=== PATIENT | male | born 1950 | race Asian ===

== ENCOUNTER 2016-12-04 15:28 | Inpatient (IN) | payer MEDICAID ==
[~2016-12-04] VITALS: Ht 170.2 cm; Wt 63.7 kg
[2016-12-04 17:20] LABS: BASOPHILS % (AUTO) 0.2 % (0.0-2.0); EOSINOPHILS % (AUTO) 0.7 % (1.0-6.0); HEMOGLOBIN 15.2 g/dL (13.5-17.5); LYMPHOCYTES # (AUTO) 1.4 K/uL (1.0-4.8); LYMPHOCYTES % (AUTO) 12.5 % (22.0-44.0); MEAN CORPUSCULAR HEMOGLOBIN 31.4 pg (26.0-34.0); MEAN CORPUSCULAR HGB CONC 33.1 G/dL (31.0-37.0); MEAN CORPUSCULAR VOLUME 95 fL (80-100); MONOCYTES # (AUTO) 0.7 K/uL (0.1-1.0); MONOCYTES % (AUTO) 6.6 % (2.0-9.0); NEUTROPHILS # (AUTO) 8.8 K/uL (1.8-7.7); PLATELET COUNT (AUTO) 280 K/uL (150-450); RED BLOOD CELL COUNT(AUTO) 4.84 MIL/uL (4.50-5.90); RED CELL DISTRIBUTION WIDTH 13.5 % (11.5-14.5)
[2016-12-04 17:22] LABS: ANION GAP 9 mmol/L (8-16); CALCIUM, TOTAL 8.8 mg/dL (8.8-10.5); CARBON DIOXIDE 30 mmol/L (22-29); CHLORIDE 102 mmol/L (98-107); CREATININE 1.04 mg/dL (0.60-1.30); GLOMERULAR FILTR. RATE CALC > 60 mL/min (>60); POTASSIUM 4.2 mmol/L (3.5-5.1); SODIUM SERUM 141 mmol/L (136-145); UREA NITROGEN, BLOOD 14 mg/dL (7-18)
[2016-12-04 17:27] LABS: ALANINE AMINOTRANSFERASE 48 U/L (12-78); ALBUMIN 4.2 g/dL (3.4-5.0); ASPARTATE AMINOTRANSFERASE 22 U/L (15-37); BILIRUBIN,TOTAL 0.2 mg/dL (0.1-1.0); TOTAL PROTEIN, SERUM 8.2 g/dL (6.4-8.2)
[2016-12-04 17:29] LABS: AMMONIA 13 umol/L (11-32)
[2016-12-04 17:30] LABS: TROPONIN I < 0.02 ng/mL (0.00-0.05)
[2016-12-04 17:50] LABS: B-TYPE NATRIURETIC PEPTIDE 8 pg/mL (0-100)
[2016-12-04 18:35] LABS: APPEARANCE,URINE CLEAR (CLEAR); GLUCOSE, URINE (UA) 100 mg/dL (NEGATIVE); KETONES,URINE NEGATIVE (NEGATIVE); LEUKOCYTE ESTERASE ,URINE NEGATIVE (NEGATIVE); OCCULT BLOOD,URINE NEGATIVE (NEGATIVE); PH,URINE 6.5 (5.0-8.0); PROTEIN,URINE NEGATIVE (NEGATIVE)
[2016-12-04 18:37] LABS: ADD UA MICROSCOPIC YES
[2016-12-04 18:41] LABS: RBC,URINE None Seen /HPF (0-2); WBC,URINE 0-2 /HPF (0-5)
[2016-12-04 20:05] VITALS: BP 137/81
[2016-12-04] MEDS ORDERED: DEXTROSE 50%-WATER 25 GM/50 ML SYRINGE IVP PRN (21:00)
[2016-12-04] MEDS ORDERED: ACETAMINOPHEN 325 MG TABLET PO PRN (21:00)
[2016-12-04] MEDS ORDERED: MAGNESIUM HYDROXIDE SUSPENSION 30 ML UDCUP PO PRN (21:00)
[2016-12-04] MEDS: ASPIRIN 81 MG CHEWABLE TABLET PO SCH (21:36)
[2016-12-04] MEDS: SIMVASTATIN 20 MG TABLET PO SCH (21:36)
[2016-12-04] MEDS: DOCUSATE SODIUM 100 MG CAPSULE PO SCH (21:36)
[2016-12-04] MEDS: INSULIN ASPART 100 UNITS/ML SQ PRN (21:38)
[2016-12-04] MEDS: HEPARIN SODIUM,PORCINE 5,000 UNITS/ML VIAL SQ SCH (23:27)
[2016-12-04 23:49] VITALS: BP 134/88
[2016-12-05 04:15] VITALS: BP 108/70
[2016-12-05 04:42] LABS: GLUCOSE COMMENT 1 Received Meds; GLUCOSE,POINT OF CARE 204 MG/DL (70-110)
[2016-12-05 07:23] LABS: CHOL/HDL RATIO 4.5 (4.2-7.3)
[2016-12-05 07:31] VITALS: BP 102/66
[2016-12-05] MEDS: DOCUSATE SODIUM 100 MG CAPSULE PO SCH ×2 (08:51→20:03)
[2016-12-05] MEDS: PANTOPRAZOLE SODIUM 40 MG DR TABLET PO SCH (08:51)
[2016-12-05] MEDS: HEPARIN SODIUM,PORCINE 5,000 UNITS/ML VIAL SQ SCH ×2 (08:52→17:03)
[2016-12-05] MEDS: INSULIN ASPART 100 UNITS/ML SQ PRN ×3 (12:04→20:07)
[2016-12-05 15:35] VITALS: BP 100/66
[2016-12-05 19:31] VITALS: BP 101/66
[2016-12-05] MEDS: ASPIRIN 81 MG CHEWABLE TABLET PO SCH (20:03)
[2016-12-05] MEDS: SIMVASTATIN 20 MG TABLET PO SCH (20:03)
[2016-12-06 00:10] VITALS: BP 119/76
[2016-12-06 04:17] VITALS: BP 107/68
[2016-12-06 07:52] VITALS: BP 99/66
[2016-12-06] MEDS: PANTOPRAZOLE SODIUM 40 MG DR TABLET PO SCH (07:54)
[2016-12-06] MEDS: DOCUSATE SODIUM 100 MG CAPSULE PO SCH (07:54)
[2016-12-06] MEDS: HEPARIN SODIUM,PORCINE 5,000 UNITS/ML VIAL SQ SCH ×2 (07:58)
[2016-12-06 11:20] VITALS: BP 115/74
[2016-12-06] MEDS: INSULIN ASPART 100 UNITS/ML SQ PRN (11:41)
[2016-12-06] MEDS ORDERED: SIMV20 PO (13:47)
[2016-12-06] MEDS ORDERED: ASPI81TA2 PO (13:48)
[2016-12-09 20:07] LABS: GLUCOSE,POINT OF CARE 122 MG/DL (70-110)
== END 2016-12-06 15:10 | disposition home or self-care (01) | DRG 47 ==
LOC: EMS 15:31 → 5S 18:56
PROVIDERS: ADMIT Internal Medicine; ATTEND Internal Medicine
DX: G45.9 Transient cerebral ischemic attack, unspecified (principal); E11.9 Type 2 diabetes mellitus without complications; J45.909 Unspecified asthma, uncomplicated; Z79.84 Long term (current) use of oral hypoglycemic drugs
CPT/HCPCS: 70450; 70551; 82962; 92610; 93005; 93306; 93880; 99285; G0480; J1644

== ENCOUNTER 2020-02-10 06:30 | Day surgery (SDC) | payer MEDICARE, OTHER ==
[~2020-02-10] VITALS: Ht 170.2 cm; Wt 63.6 kg
[~2020-02-10 06:30] MED LIST: ASPI81TA39 PO; DIABETES PO; SIMV-260 PO
[2020-02-10] MEDS ORDERED: SODIUM CHLORIDE 0.9% 1,000 ML IV ONE (07:00)
[2020-02-10] MEDS ORDERED: SODIUM CHLORIDE 0.9% 1,000 ML ONE (07:02)
[2020-02-10 07:11] LABS: GLUCOMETER DEV NAME(LOC) SDS.; GLUCOSE,POINT OF CARE 165 MG/DL (70-110)
[2020-02-10] MEDS ORDERED: METF-961 PO (07:13)
[2020-02-10] MEDS ORDERED: DOXY-354 PO (07:13)
[2020-02-10] MEDS ORDERED: GABA-1181 PO (07:13)
[2020-02-10] MEDS ORDERED: GLIM4 PO (07:13)
[2020-02-10] MEDS ORDERED: FentaNYL CITRATE-PF 100 MCG/2 ML VIAL ONE (07:41)
[2020-02-10] MEDS ORDERED: MIDAZOLAM HCL 2 MG/2 ML VIAL ONE (07:41)
[2020-02-10] MEDS ORDERED: MethylPREDNISolone SOD SUCC 125 MG/2 ML VIAL IVP ONE (09:00)
[2020-02-10] MEDS ORDERED: MethylPREDNISolone SOD SUCC 125 MG/2 ML VIAL ONE (09:35)
[2020-02-10] MEDS ORDERED: LIDOCAINE 4% 50 ML SOLUTION ONE (16:24)
[2020-02-10] MEDS ORDERED: BENZOCAINE 20% 50 MCG/SPRAY 57 GM ONE (16:24)
[2020-02-10] MEDS ORDERED: ALBUTEROL SULFATE 2.5 MG/0.5 ML NEB SOLUTION NEB ONE (16:24)
[2020-02-10] MEDS ORDERED: LIDOCAINE 2% 30 ML JELLY ONE (16:24)
[2020-02-10] MEDS ORDERED: OXYGEN THERAPY IH SCH (20:00)
== END 2020-02-10 10:50 | disposition home or self-care (01) ==
LOC: SURGERY 06:30
PROVIDERS: ATTEND Internal Medicine Critical Care Medicine
DX: J38.4 Edema of larynx (principal); B37.0 Candidal stomatitis
CPT/HCPCS: 31623; 31624; 71045; 82962; 87015; 87070; 87077; 87101; 87186; 87205; 87206; 87220; 87635; 88108; 88312; J2250; J2930; J3010; J7030

== ENCOUNTER 2020-02-24 18:09 | Emergency (ER) | payer MEDICARE, OTHER ==
[~2020-02-24] VITALS: Ht 167.6 cm; Wt 67.3 kg
[~2020-02-24 18:09] MED LIST changes: -ASPI81TA39 PO; -DIABETES PO; +DOXY-354 PO; +GABA-1181 PO; +GLIM4 PO; +METF-961 PO; -SIMV-260 PO
[2020-02-24 19:32] LABS: BASOPHILS % (AUTO) 1.8 % (0.0-2.0); EOSINOPHILS % (AUTO) 2.4 % (1.0-6.0); HEMATOCRIT 41.6 % (41-53); HEMOGLOBIN 13.9 g/dL (13.5-17.5); LYMPHOCYTES # (AUTO) 1.6 K/uL (1.0-4.8); MEAN CORPUSCULAR HEMOGLOBIN 33.3 pg (26.0-34.0); MEAN CORPUSCULAR HGB CONC 33.5 G/dL (31.0-37.0); MEAN CORPUSCULAR VOLUME 99 fL (80-100); MONOCYTES # (AUTO) 0.8 K/uL (0.1-1.0); MONOCYTES % (AUTO) 9.8 % (2.0-9.0); NEUTROPHILS # (AUTO) 5.5 K/uL (1.8-7.7); PLATELET COUNT (AUTO) 316 K/uL (150-450); RED BLOOD CELL COUNT(AUTO) 4.18 MIL/uL (4.50-5.90); RED CELL DISTRIBUTION WIDTH 14.2 % (11.5-14.5)
[2020-02-24 19:46] LABS: CALCIUM, TOTAL 9.1 mg/dL (8.8-10.5); CREATININE 1.27 mg/dL (0.60-1.30); POTASSIUM 4.2 mmol/L (3.5-5.1)
[2020-02-24 19:47] LABS: INR 0.9 (0.9-1.1); PROTHROMBIN TIME 9.6 SEC (9.4-11.6)
[2020-02-24 19:53] LABS: ALBUMIN 4.1 g/dL (3.4-5.0); BILIRUBIN,TOTAL 0.3 mg/dL (0.1-1.0); TOTAL PROTEIN, SERUM 8.4 g/dL (6.4-8.2)
[2020-02-24 20:12] VITALS: BP 130/74
== END 2020-02-24 21:10 | disposition home or self-care (01) ==
LOC: EMS 18:09
DX: R06.02 Shortness of breath (principal); J45.909 Unspecified asthma, uncomplicated; E11.9 Type 2 diabetes mellitus without complications; Z79.84 Long term (current) use of oral hypoglycemic drugs; Z79.899 Other long term (current) drug therapy
CPT/HCPCS: 93005